=== PATIENT | female | born 1945 | race Caucasian/White ===

== ENCOUNTER 2023-04-10 03:43 | Inpatient (IN) | payer MEDICARE ==
[2023-04-10] MEDS ORDERED: diphenhydrAMINE 50 MG/ML 1 ML VIAL IVP STA (03:59)
[2023-04-10] MEDS ORDERED: methylPREDNISolone SOD SUCCI 125 MG/2 ML VIAL IV STA (03:59)
[2023-04-10] MEDS ORDERED: FAMOTIDINE 20 MG/2 ML VIAL IV STA (03:59)
[2023-04-10] MEDS ORDERED: MAG HYDROX/AL HYDROX/SIMETH 30 ML, HYOSCYAMINE ELIXIR 10 ML, LIDOCAINE 2% GLYDO JELLY 1... PO STA ×3 (03:59)
[2023-04-10] MEDS ORDERED: SODIUM CHLORIDE 0.9% 1,000 ML IV ONE (03:59)
--- NOTE | 2023-04-10 04:05 | ED ---
General Adult HPI - General Chief complaint: Abdominal Pain Stated complaint: Chest Pain Time Seen by Provider: 04/10/23 03:44 Source: patient, EMS Mode of arrival: EMS - History of Present Illness Initial comments: This is a 77-year-old female with a past medical history including arthritis presents emergency department via EMS for epigastric abdominal pain and burning" feeling like I had a heart attack." The patient stated that she woke up out of sleep with sharp, extreme pain in the epigastric region with sweatiness. The patient was anxious on arrival and stated that the pain was mildly improved however was still present. The patient stated that she did go to bed with minor abdominal pain and does have a history of reflux and did take medications however she was able to sleep for a few hours but was woken up due to the epigastric pain. The patient denied any radiation to this pain and stated that she did have continued burning from her epigastric region up to her center of her chest. The patient denied any left arm pain or jaw pain. The patient also denied any fevers or chills. - Related Data Allergies Allergy/AdvReac Type Severity Reaction Status Date / Time iodine Allergy Rash/Hives Verified 04/10/23 04:37 Review of Systems ROS Statement: Those systems with pertinent positive or pertinent negative responses have been documented in the HPI. ROS Other: All systems not noted in ROS Statement are negative. Past Medical History Past Medical History: COPD, GERD/Reflux Additional Past Medical History / Comment(s): hital hernia Past Surgical History: Section Smoking Status: Former smoker Past Alcohol Use History: None Reported Past Drug Use History: None Reported General Exam Limitations: no limitations General appearance: alert, in no apparent distress, anxious Head exam: Present: atraumatic, normocephalic, normal inspection Eye exam: Present: normal appearance, PERRL Pupils: Present: normal accommodation ENT exam: Present: normal exam, normal oropharynx, mucous membranes moist Neck exam: Present: normal inspection, full ROM Respiratory exam: Present: normal lung sounds bilaterally Cardiovascular Exam: Present: regular rate, normal rhythm, normal heart sounds GI/Abdominal exam: Present: soft, tenderness (TTP over the LUQ, RUQ and epigastric region), normal bowel sounds Extremities exam: Present: normal inspection, full ROM Back exam: Present: normal inspection, full ROM Neurological exam: Present: alert, oriented X3, CN II-XII intact Psychiatric exam: Present: normal affect, normal mood Skin exam: Present: warm, dry Course Vital Signs 04/10/23 04/10/23 03:45 05:26 Temperature 97.5 F L Pulse Rate 76 77 Respiratory 20 19 Rate Blood Pressure 177/65 185/85 O2 Sat by Pulse 97 93 L Oximetry EKG Findings - EKG Comments: EKG Findings:: An EKG was obtained and was interpreted by myself showing a rate of 62, CT interval of 203, QR nondenominational 137 and QTC of 450. This EKG showed a normal sinus rhythm with a right bundle branch block. There was however no ST segment elevation or depression noted. Medical Decision Making - Medical Decision Making Was pt. sent in by a medical professional or institution (, PA, [employer], urgent care, hospital, or retirement...) When possible be specific @ -No Did you speak to anyone other than the patient for history (EMS, parent, family, police, friend...)? What history was obtained from this source @ -No Did you review nursing and triage notes (agree or disagree)? Why? @ -I reviewed and agree with nursing and triage notes Were old charts reviewed (outside hosp., previous admission, EMS record, old EKG, old radiological studies, urgent care reports/EKG's, retirement records)? Report findings @ -No old charts were reviewed Differential Diagnosis (chest pain, altered mental status, abdominal pain women, abdominal pain men, vaginal bleeding, weakness, fever, dyspnea, syncope, headache, dizziness, GI bleed, back pain, seizure, CVA, palpatations, mental health)? @ -Gastroenteritis, small bowel obstruction, appendicitis, diverticulitis EKG interpreted by me (3pts min.). @ -As above X-rays interpreted by me (1pt min.). @ -Chest x-ray was obtained and was interpreted by myself showing cardiomegaly with prominence of the interstitium. CT interpreted by me (1pt min.). @ -CT abdomen and pelvis with IV contrast was obtained and was interpreted by myself showing findings most consistent with a small bowel obstruction with a transition point within the left lower quadrant. This is likely from adhesion. There is post surgical changes a "colonic diverticulosis without evidence for acute diverticulosis. 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 U/S interpreted by me (1pt. min.). @ -None done What testing was considered but not performed or refused? (CT, X-rays, U/S, labs)? Why? @ -None What meds were considered but not given or refused? Why? @ -None Did you discuss the management of the patient with other professionals (professionals i.e. , PA, [employer], lab, RT, psych nurse, social work professor, gummed tape press operator, teacher, truant officer, case checker)? Give summary @ -Yes, admitting physician was contacted regarding patient admission. Was smoking cessation discussed for >3mins.? @ -No Was critical care preformed (if so, how long)? @ -No Were there social determinants of health that impacted care today? How? (Homelessness, low income, unemployed, alcoholism, drug addiction, transportation, low edu. Level, literacy, decrease access to med. care, detention, rehab)? @ -No Was there de-escalation of care discussed even if they declined (Discuss DNR or withdrawal of care, Hospice)? DNR status @ -No What co-morbidities impacted this encounter? (DM, HTN, Smoking, COPD, CAD, Cancer, CVA, ARF, Chemo, Hep., AIDS, mental health diagnosis, sleep apnea, morbid obesity)? @ -Hypertension Was patient admitted / discharged? Hospital course, mention meds given and route, prescriptions, significant lab abnormalities, going to OR and other pertinent info. @ -The patient was seen and evaluated emergency department. Physical exam, the patient was resting in bed in minimal distress secondary to abdominal pain. The patient did receive multiple medications and had mild improvement. Laboratory workup and imaging was significant for findings of likely small bowel obstruction. Due to this, the patient will be admitted for further workup and evaluation. The patient was told of this plan and was agreeable. The patient was admitted in stable condition. Undiagnosed new problem with uncertain prognosis? @ -No Drug Therapy requiring intensive monitoring for toxicity (Heparin, Nitro, Insulin, Cardizem)? @ -No Were any procedures done? @ -No Diagnosis/symptom? @ -Small bowel obstruction Acute, or Chronic, or Acute on Chronic? @ -Acute Uncomplicated (without systemic symptoms) or Complicated (systemic symptoms)? @ -Complicated Side effects of treatment? @ -No Exacerbation, Progression, or Severe Exacerbation? @ -No Poses a threat to life or bodily function? How? (Chest pain, USA, NM, pneumonia, PE, COPD, DKA, ARF, appy, cholecystitis, CVA, Diverticulitis, Homicidal, Suicidal, threat to staff... and all critical care pts) @ -Yes, continued obstruction can lead to permanent damage and possible . - Lab Data Result diagrams: 04/10/23 04:06 04/10/23 04:06 Lab Results 04/10/23 04/10/23 04/10/23 Range/Units 04:06 04:06 04:06 WBC 8.2 (3.8-10.6) k/uL RBC 4.98 (3.80-5.40) m/uL Hgb 14.7 (11.4-16.0) gm/dL Hct 45.0 (34.0-46.0) % MCV 90.4 (80.0-100.0) fL MCH 29.6 (25.0-35.0) pg MCHC 32.7 (31.0-37.0) g/dL RDW 12.9 (11.5-15.5) % Plt Count 188 (150-450) k/uL MPV 8.9 Neutrophils % 80 % Lymphocytes % 11 % Monocytes % 5 % Eosinophils % 2 % Basophils % 0 % Neutrophils # 6.6 (1.3-7.7) k/uL Lymphocytes # 0.9 L (1.0-4.8) k/uL Monocytes # 0.4 (0-1.0) k/uL Eosinophils # 0.1 (0-0.7) k/uL Basophils # 0.0 (0-0.2) k/uL PT 9.7 (9.0-12.0) sec INR 0.9 (<1.2) APTT 21.9 L (22.0-30.0) sec Sodium 139 (137-145) mmol/L Potassium 4.1 (3.5-5.1) mmol/L Chloride 97 L (98-107) mmol/L Carbon Dioxide 33 H (22-30) mmol/L Anion Gap 9 mmol/L BUN 34 H (7-17) mg/dL Creatinine 0.69 (0.52-1.04) mg/dL Est GFR (CKD-EPI)AfAm >90 (>60 ml/min/1.73 sqM) Est GFR (CKD-EPI)NonAf 84 (>60 ml/min/1.73 sqM) Glucose 149 H (74-99) mg/dL Calcium 10.7 H (8.4-10.2) mg/dL Magnesium 2.4 H (1.6-2.3) mg/dL Total Bilirubin 0.8 (0.2-1.3) mg/dL AST 34 (14-36) U/L ALT 28 (4-34) U/L Alkaline Phosphatase 134 H (38-126) U/L Troponin I (0.000-0.034) ng/mL NT-Pro-B Natriuret Pep 81 pg/mL Total Protein 7.9 (6.3-8.2) g/dL Albumin 4.6 (3.5-5.0) g/dL Lipase 83 (23-300) U/L 04/10/23 Range/Units 04:06 WBC (3.8-10.6) k/uL RBC (3.80-5.40) m/uL Hgb (11.4-16.0) gm/dL Hct (34.0-46.0) % MCV (80.0-100.0) fL MCH (25.0-35.0) pg MCHC (31.0-37.0) g/dL RDW (11.5-15.5) % Plt Count (150-450) k/uL MPV Neutrophils % % Lymphocytes % % Monocytes % % Eosinophils % % Basophils % % Neutrophils # (1.3-7.7) k/uL Lymphocytes # (1.0-4.8) k/uL Monocytes # (0-1.0) k/uL Eosinophils # (0-0.7) k/uL Basophils # (0-0.2) k/uL PT (9.0-12.0) sec INR (<1.2) APTT (22.0-30.0) sec Sodium (137-145) mmol/L Potassium (3.5-5.1) mmol/L Chloride (98-107) mmol/L Carbon Dioxide (22-30) mmol/L Anion Gap mmol/L BUN (7-17) mg/dL Creatinine (0.52-1.04) mg/dL Est GFR (CKD-EPI)AfAm (>60 ml/min/1.73 sqM) Est GFR (CKD-EPI)NonAf (>60 ml/min/1.73 sqM) Glucose (74-99) mg/dL Calcium (8.4-10.2) mg/dL Magnesium (1.6-2.3) mg/dL Total Bilirubin (0.2-1.3) mg/dL AST (14-36) U/L ALT (4-34) U/L Alkaline Phosphatase (38-126) U/L Troponin I <0.012 (0.000-0.034) ng/mL NT-Pro-B Natriuret Pep pg/mL Total Protein (6.3-8.2) g/dL Albumin (3.5-5.0) g/dL Lipase (23-300) U/L Disposition Clinical Impression: Small bowel obstruction Disposition: ADMITTED IP TO THIS [facility] Condition: Stable Is patient prescribed a controlled substance at d/c from ED?: No Referrals: Mike León MD [Primary Care Provider] - 1-2 days Time of Disposition: 06:00 Decision to Admit Reason: Admit from EC Decision Date: 04/10/23 Decision Time: 06:00
[2023-04-10 04:25] LABS: Basophils % (A) 0 %; Eosinophils # (A) 0.1 k/uL (0-0.7); Eosinophils % (A) 2 %; HGB 14.7 gm/dL (11.4-16.0); Lymphocytes # (A) 0.9 k/uL (1.0-4.8); Lymphocytes % (A) 11 %; MCH 29.6 pg (25.0-35.0); MCHC 32.7 g/dL (31.0-37.0); MCV 90.4 fL (80.0-100.0); Mean Platelet Volume 8.9; Monocytes # (A) 0.4 k/uL (0-1.0); Monocytes % (A) 5 %; Neutrophils # (A) 6.6 k/uL (1.3-7.7); Neutrophils % (A) 80 %; Platelet Count 188 k/uL (150-450); RBC 4.98 m/uL (3.80-5.40); RDW 12.9 % (11.5-15.5); WBC 8.2 k/uL (3.8-10.6)
[2023-04-10 04:46] LABS: ALT 28 U/L (4-34); AST 34 U/L (14-36); African American GFR (CKD) >90 (>60 ml/min/1.73 sqM); Albumin 4.6 g/dL (3.5-5.0); Alkaline Phosphatase 134 U/L (38-126); Anion Gap 9 mmol/L; Blood Urea Nitrogen 34 mg/dL (7-17); Calcium 10.7 mg/dL (8.4-10.2); Carbon Dioxide 33 mmol/L (22-30); Chloride 97 mmol/L (98-107); Glucose 149 mg/dL (74-99); INR 0.9 (<1.2); Lipase 83 U/L (23-300); Magnesium 2.4 mg/dL (1.6-2.3); Non-African American GFR(CKD) 84 (>60 ml/min/1.73 sqM); Potassium 4.1 mmol/L (3.5-5.1); Prothrombin Time 9.7 sec (9.0-12.0); Sodium 139 mmol/L (137-145); Total Bilirubin 0.8 mg/dL (0.2-1.3); Total Protein 7.9 g/dL (6.3-8.2)
[2023-04-10 04:54] LABS: NT-Pro-B-Type Natriuretic Pept 81 pg/mL
[2023-04-10 05:15] LABS: Partial Thromboplastin Time 21.9 sec (22.0-30.0)
[2023-04-10] MEDS ORDERED: ONDANSETRON 4 MG/2 ML VIAL IVP STA (05:53)
--- NOTE | 2023-04-10 05:59 | CT ---
EXAMINATION TYPE: CT abdomen pelvis w con CT DLP: 1307.8 mGycm, Automated exposure control for dose reduction was used. DATE OF EXAM: 04/10/2023 5:44 AM COMPARISON: None CLINICAL INDICATION:Female, 77 years old with history of Acute abdominal pain; Pt reports to ED via E [facility] with upper abdomen pain, sweating, and chest pain. TECHNIQUE: Standard CT of the abdomen and pelvis following the administration of 100 cc of Isovue 3 00 IV contrast material. Coronal and sagittal reformats were performed. FINDINGS: LOWER CHEST: Posterior dependent subsegmental atelectasis is noted. Partial visualization of bilatera l peripherally calcified breast prosthesis. Mildly prominent heart. ABDOMEN LIVER: Unremarkable GALLBLADDER AND BILE DUCTS: The gallbladder is surgically absent. Expected extra hepatic biliary duct al dilatation status post cholecystectomy. PANCREAS: Unremarkable. SPLEEN: Unremarkable. ADRENAL GLANDS: Unremarkable. KIDNEYS AND URETERS: No evidence of hydronephrosis or renal calculus. The kidneys enhance symmetrical ly. Contrast is demonstrated within both kidneys on the delayed phase. PELVIS BLADDER: Poorly visualized due to streak artifact from hip prosthesis. REPRODUCTIVE: Poorly visualized due to streak artifact from hip prosthesis. ABDOMEN & PELVIS STOMACH AND BOWEL: Dilated small bowel with some mesenteric edema and small bowel feces sign identifi ed. The small bowel measures up to 3.1 cm. Transition point is identified within the left lower quadr ant. There is underdistended distal small bowel past this point. No pneumatosis. Surgical changes fro m hemicolectomy with anastomosis in the rectum. The appendix is not confidently identified. No signif icant inflammatory changes within the right lower quadrant. Distal colonic diverticulosis without carlos manuel dence for acute diverticulitis. No evidence of bowel obstruction. PERITONEUM: No evidence of pneumoperitoneum or free fluid. VASCULATURE: Moderate atherosclerotic calcifications are present throughout the abdominal aorta and i ts branches. No evidence of aortic aneurysm. Ectasia of the infrarenal abdominal aorta measuring up t o 2.7 cm. MUSCULOSKELETAL: No acute osseous abnormalities. Mild disc degeneration changes are present throughou t the thoracolumbar spine. This is most prominent at L4-L5 and L5-S1. Postsurgical changes from bilat eral total hip arthroplasty. Pseudojoint at the transverse process of L5 and the sacrum on the left. LYMPH NODES: No gross evidence for lymphadenopathy. SOFT TISSUE/ABDOMINAL WALL: Small fat filled umbilical hernia. IMPRESSION: 1. Findings most consistent with small bowel obstruction with transition point within the left lower quadrant. Likely from adhesion. 2. Postsurgical changes of the colon with colonic diverticulosis without evidence for acute diverticu losis. 3. 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
--- NOTE | 2023-04-10 06:01 | XR ---
EXAMINATION TYPE: XR chest 2V DATE OF EXAM: 04/10/2023 5:49 AM COMPARISON: None TECHNIQUE: XR chest 2V Frontal and lateral views of the chest. CLINICAL INDICATION:Female, 77 years old with history of CP; FINDINGS: Lungs/Pleura: There is no evidence of pleural effusion, focal consolidation, or pneumothorax. Promin ence of the interstitium. Heart/mediastinum: Cardiomediastinal silhouette is enlarged. Atherosclerotic calcifications are seen in the aorta. Musculoskeletal: No acute osseous pathology. Bilateral AC joint arthropathy. Other: Bilateral peripherally calcified breast prosthesis. IMPRESSION: Cardiomegaly with prominence of the interstitium. Correlate for possible CHF exacerbation.
[2023-04-10] MEDS ORDERED: NALOXONE 0.4 MG/ML 1 ML VIAL IV PRN ×2 (06:08→09:21)
[2023-04-10] MEDS ORDERED: MAG HYDROX/AL HYDROX/SIMETH 30 ML CUP PO PRN (09:21)
[2023-04-10] MEDS ORDERED: HYDROcodone/APAP 5-325MG 1 EACH TAB PO PRN (09:21)
[2023-04-10] MEDS ORDERED: ACETAMINOPHEN TAB 325 MG TAB PO PRN (09:21)
[2023-04-10] MEDS: FUROSEMIDE 10 MG/ML 4 ML VIAL IV SCH ×2 (10:14→22:07)
[2023-04-10 10:55] LABS: Appearance,Urine Clear (Clear); Bilirubin,Urine Negative (Negative); Blood,Urine Negative (Negative); Color,Urine Light Yellow; Glucose,Urine (UA) Negative (Negative); Ketones,Urine Negative (Negative); Leukocyte Esterase,Urine Negative (Negative); Nitrite,Urine Negative (Negative); Protein,Urine Negative (Negative); Specific Gravity,Urine 1.034 (1.001-1.035); Urobilinogen,Urine <2.0 mg/dL (<2.0)
[2023-04-10] MEDS: ONDANSETRON 4 MG/2 ML VIAL IVP PRN ×2 (11:21→18:55)
--- NOTE | 2023-04-10 11:43 | P.GSCN ---
History of Present Illness Consult date: 04/10/23 Reason for Consult: Small bowel obstruction History of present illness: Patient's a 77-year-old lady who presented to [facility] emergency department in client development director hours of 04/10/2023 with chief complaint of around 24 hours of progressive burning epigastric upper abdominal pain and fullness with acute exacerbation of heartburn. She hasn't had this sort of issue in the past. Last bowel movement was yesterday, described as loose. She admits to some flatus today. Surgical history is significant for a segmental colectomy for complications of diverticulitis in 2019 as well as inguinal hernia repair at some point in the relatively distant past. Over the past 2 years she is undergone EGD and colonoscopy, was told that she had a hiatal hernia and significant gastroesophageal reflux and diverticulosis on colonoscopy. No known personal history of inflammatory bowel disease. No known personal history of heart attack, stroke, DVT or pulmonary embolus. She's not maintained on any manner of oral anticoagulants, no known history of diabetes mellitus. She's had a hemodynamically stable and afebrile appearance since presentation. Laboratory studies today showed a normal CBC without evidence of iron deficiency on differential, normal INR at 0.9. Comprehensive metabolic panel shows a high CO2 at 33, otherwise normal with the exception of a mildly elevated alkaline phosphatase at 134 and slightly elevated magnesium 2.4. Lipase was normal range. Chest x-ray shows a suggestion of cardiomegaly, otherwise normal. Computed tomography scan of the abdomen and pelvis was reviewed showing findings consistent with mechanical small bowel obstruction with a transition point in the left lower quadrant. No free air, no free fluid. Review of Systems All systems: negative Past Medical History Past Medical History: COPD, GERD/Reflux, Osteoarthritis (OA) Additional Past Medical History / Comment(s): hital hernia, gerd, copd, oa of hips bilat, Breast implants bilat, severe restless legs. History of Any Multi-Drug Resistant Organisms: None Reported Past Surgical History: Section, Joint Replacement Additional Past Surgical History / Comment(s): Total hip replacements bilateral, 18 inches of large colon resection 2019 due to abcess. Past Anesthesia/Blood Transfusion Reactions: No Reported Reaction Past Psychological History: No Psychological Hx Reported Smoking Status: Former smoker Past Alcohol Use History: None Reported Past Drug Use History: None Reported - Past Family History Mother Family Medical History: Cancer Father Family Medical History: Cancer Medications and Allergies Home Medications Medication Instructions Recorded Confirmed Type Celecoxib 400 mg PO DAILY 04/10/23 04/10/23 History Magnesium(Unknown Dose) 1 tab PO DAILY 04/10/23 04/10/23 History Multivitamin [Multivitamins Adult 1 tab PO DAILY 04/10/23 04/10/23 History Gummies] Omeprazole Magnesium [PriLOSEC OTC] 20 mg PO DAILY 04/10/23 04/10/23 History Potassium Gluconate 99 mg PO BID 04/10/23 04/10/23 History traMADol HCL 50 mg PO Q6H PRN 04/10/23 04/10/23 History Allergies Allergy/AdvReac Type Severity Reaction Status Date / Time Iodinated Contrast Media Allergy Anaphylaxis Verified 04/10/23 11:24 iodine Allergy Anaphylaxis Verified 04/10/23 11:24 Surgical - Exam Osteopathic Statement: *. No significant issues noted on an osteopathic structural exam other than those noted in the History and Physical/Consult. Vital Signs Temp Pulse Resp BP Pulse Ox 97.5 F L 76 20 177/65 97 04/10/23 03:45 04/10/23 03:45 04/10/23 03:45 04/10/23 03:45 04/10/23 03:45 - General well developed, well nourished, no distress - Eyes PERRL, normal ocular movement - ENT normal pinna, normal nares, normal mucosa, no hearing loss - Neck trachea midline - Respiratory normal expansion, normal respiratory effort, clear to auscultation - Cardiovascular Rhythm: regular - Abdomen Abdomen is soft, nontender palpation, no guarding, rebound, or distention. Abdominal exam is benign, no evidence of peritonitis. - Integumentary no abnormal pigmentation - Neurologic normal coordination, normal sensation - Psychiatric oriented to time, oriented to person, oriented to place, speech is normal, memory intact Results - Labs 04/10/23 04:06 04/10/23 04:06 Abnormal Lab Results - Last 24 Hours (Table) 04/10/23 04/10/23 04/10/23 Range/Units 04:06 04:06 04:06 Lymphocytes # 0.9 L (1.0-4.8) k/uL APTT 21.9 L (22.0-30.0) sec Chloride 97 L (98-107) mmol/L Carbon Dioxide 33 H (22-30) mmol/L BUN 34 H (7-17) mg/dL Glucose 149 H (74-99) mg/dL Calcium 10.7 H (8.4-10.2) mg/dL Magnesium 2.4 H (1.6-2.3) mg/dL Alkaline Phosphatase 134 H (38-126) U/L Diabetes panel 04/10/23 Range/Units 04:06 Sodium 139 (137-145) mmol/L Potassium 4.1 (3.5-5.1) mmol/L Chloride 97 L (98-107) mmol/L Carbon Dioxide 33 H (22-30) mmol/L BUN 34 H (7-17) mg/dL Creatinine 0.69 (0.52-1.04) mg/dL Glucose 149 H (74-99) mg/dL Calcium 10.7 H (8.4-10.2) mg/dL AST 34 (14-36) U/L ALT 28 (4-34) U/L Alkaline Phosphatase 134 H (38-126) U/L Total Protein 7.9 (6.3-8.2) g/dL Albumin 4.6 (3.5-5.0) g/dL Calcium panel 04/10/23 Range/Units 04:06 Calcium 10.7 H (8.4-10.2) mg/dL Albumin 4.6 (3.5-5.0) g/dL Pituitary panel 04/10/23 Range/Units 04:06 Sodium 139 (137-145) mmol/L Potassium 4.1 (3.5-5.1) mmol/L Chloride 97 L (98-107) mmol/L Carbon Dioxide 33 H (22-30) mmol/L BUN 34 H (7-17) mg/dL Creatinine 0.69 (0.52-1.04) mg/dL Glucose 149 H (74-99) mg/dL Calcium 10.7 H (8.4-10.2) mg/dL Adrenal panel 04/10/23 Range/Units 04:06 Sodium 139 (137-145) mmol/L Potassium 4.1 (3.5-5.1) mmol/L Chloride 97 L (98-107) mmol/L Carbon Dioxide 33 H (22-30) mmol/L BUN 34 H (7-17) mg/dL Creatinine 0.69 (0.52-1.04) mg/dL Glucose 149 H (74-99) mg/dL Calcium 10.7 H (8.4-10.2) mg/dL Total Bilirubin 0.8 (0.2-1.3) mg/dL AST 34 (14-36) U/L ALT 28 (4-34) U/L Alkaline Phosphatase 134 H (38-126) U/L Total Protein 7.9 (6.3-8.2) g/dL Albumin 4.6 (3.5-5.0) g/dL - Imaging Chest x-ray: report reviewed, image reviewed CT scan - abdomen: report reviewed, image reviewed CT scan - pelvis: report reviewed, image reviewed Assessment and Plan Assessment: 77-year-old lady with clinical presentation, history, and imaging consistent w ith small bowel obstruction with transition point in the left lower quadrant, may relate to postoperative adhesions. Abdominal exam benign, hemodynamically stable, no discrete concerning abnormalities on labs. History of diverticulitis with segmental resection in 2019. COPD, gastroesophageal reflux disease. Plan: Options for initial treatment were discussed with the patient at length. Recommend initial nonoperative management with nasogastric tube, IV fluids, and bowel rest. Patient's in agreement. Keep nasogastric tube to moderate intermittent suction, okay for cepacol lozenges, daily acid suppression with Protonix 40 mg IV. Will follow. If she doesn't show signs of resolution over the next 48-72 hours will anticipate a follow-up abdominal imaging series with oral contrast challenge. If she shows signs of clinical deterioration peritonitis at any point she'll need an open exploration. I expect her to do well with nasogastric decompression. We'll follow over the course of her admission Time with Patient: Greater than 30
--- NOTE | 2023-04-10 12:21 | P.HPIM ---
History of Present Illness H&P Date: 04/10/23 History of present illness; patient 77-year-old lady with past medical history s ignificant for arthritis and the ER because of abdominal pain. Patient stated that she was all right last night which started experiencing abdominal pain which is epigastric in location. Initially the pain was not severe but in the middle the night she woke up with excruciating pain that was located in the epigastric area associated with diaphoresis. Patient describes epigastric pain as burning in nature, pain was nonradiating, not associated with any aggravating or relieving factors. Did state that the pain was radiating into her chest. Denies any nausea or vomiting. Denies any shortness of breath. Denies palpitation. Because of some abdominal pain, patient came to the ER Initial lab work done in the ER showed WBC 8.2, hemoglobin 14.7, platelet count 188, sodium 138, potassium 4.1, BUN 34, creatinine 0.69, glucose 149, calcium 10.7, magnesium 2.4 Chest x-ray done in the ER showed cardiomegaly with prominence of interstitial CT abdominal and pelvis done showed findings most consistent with small bowel obstruction with transition point in the left lower quadrant likely from ad hesion. Postsurgical changes of the colon with colonic diverticulosis REVIEW OF SYSTEMS: CONSTITUTIONAL: No fever, no malaise, no fatigue. HEENT: No recent visual problems or hearing problems. Denied any sore throat. CARDIOVASCULAR: As mentioned in HPI PULMONARY: No shortness of breath, no cough, no hemoptysis. GASTROINTESTINAL: As mentioned in HPI NEUROLOGICAL: No headaches, no weakness, no numbness. HEMATOLOGICAL: Denies any bleeding or petechiae. GENITOURINARY: Denies any burning micturition, frequency, or urgency. MUSCULOSKELETAL/RHEUMATOLOGICAL: Denies any joint pain, swelling, or any muscle pain. ENDOCRINE: Denies any polyuria or polydipsia. The rest of the 14-point review of systems is negative. PHYSICAL EXAMINATION: GENERAL: The patient is alert and oriented x3, not in any acute distress. Well developed, well nourished. HEENT: Pupils are round and equally reacting to light. EOMI. No scleral icterus. No conjunctival pallor. Normocephalic, atraumatic. No pharyngeal erythema. No thyromegaly. CARDIOVASCULAR: S1 and S2 present. No murmurs, rubs, or gallops. PULMONARY: Chest is clear to auscultation, no wheezing or crackles. ABDOMEN: Soft, nontender, nondistended, bowel sounds sluggish MUSCULOSKELETAL: No joint swelling or deformity. EXTREMITIES: No cyanosis, clubbing, or pedal edema. NEUROLOGICAL: Gross neurological examination did not reveal any focal deficits. SKIN: No rashes. Assessment and plan Small bowel obstruction Monitor vital signs Monitor CBC Monitor CMP Continue telemetry monitoring Trend troponins. Keep patient nothing by mouth Continue IV fluids Continue IV Protonix twice a day Continue antiemetics Consult surgery Labs and medication were reviewed.. Continue same treatment. Continue with symptomatic treatment. Resume home medication. Monitor labs and vitals. DVT and GI prophylaxis. Further recommendations as per clinical course of the patient Dictation was produced using [employer] dictation software. please excuse any grammatical, word or spelling errors. Past Medical History Past Medical History: COPD, GERD/Reflux, Osteoarthritis (OA) Additional Past Medical History / Comment(s): hital hernia, gerd, copd, oa of hips bilat, Breast implants bilat, severe restless legs. History of Any Multi-Drug Resistant Organisms: None Reported Past Surgical History: Section, Joint Replacement Additional Past Surgical History / Comment(s): Total hip replacements bilateral, 18 inches of large colon resection 2020 due to abcess. Past Anesthesia/Blood Transfusion Reactions: No Reported Reaction Past Psychological History: No Psychological Hx Reported Smoking Status: Former smoker Past Alcohol Use History: None Reported Past Drug Use History: None Reported - Past Family History Mother Family Medical History: Cancer Father Family Medical History: Cancer Medications and Allergies Home Medications Medication Instructions Recorded Confirmed Type Celecoxib 400 mg PO DAILY 04/10/23 04/10/23 History Magnesium(Unknown Dose) 1 tab PO DAILY 04/10/23 04/10/23 History Multivitamin [Multivitamins Adult 1 tab PO DAILY 04/10/23 04/10/23 History Gummies] Omeprazole Magnesium [PriLOSEC OTC] 20 mg PO DAILY 04/10/23 04/10/23 History Potassium Gluconate 99 mg PO BID 04/10/23 04/10/23 History traMADol HCL 50 mg PO Q6H PRN 04/10/23 04/10/23 History Allergies Allergy/AdvReac Type Severity Reaction Status Date / Time Iodinated Contrast Media Allergy Anaphylaxis Verified 04/10/23 11:24 iodine Allergy Anaphylaxis Verified 04/10/23 11:24 Physical Exam Vitals: Vital Signs Temp Pulse Pulse Resp BP BP Pulse Ox 04/10/23 08:09 98.9 F 92 16 176/78 94 L 04/10/23 06:50 90 18 187/86 94 L 04/10/23 06:11 93 19 185/85 93 L 04/10/23 05:26 77 19 185/85 93 L 04/10/23 03:45 97.5 F L 76 20 177/65 97 Intake and Output 04/09/23 04/10/23 04/10/23 22:59 06:59 14:59 Other: Weight 68.039 kg 68.039 kg Results CBC & Chem 7: 04/10/23 04:06 04/10/23 04:06 Labs: Abnormal Lab Results - Last 24 Hours (Table) 04/10/23 04/10/23 04/10/23 Range/Units 04:06 04:06 04:06 Lymphocytes # 0.9 L (1.0-4.8) k/uL APTT 21.9 L (22.0-30.0) sec Chloride 97 L (98-107) mmol/L Carbon Dioxide 33 H (22-30) mmol/L BUN 34 H (7-17) mg/dL Glucose 149 H (74-99) mg/dL Calcium 10.7 H (8.4-10.2) mg/dL Magnesium 2.4 H (1.6-2.3) mg/dL Alkaline Phosphatase 134 H (38-126) U/L Thrombosis Risk Factor Assmnt - Choose All That Apply Each Factor Represents 1 point: Abnormal pulmonary function (COPD), Varicose veins Other Risk Factors: Yes Each Risk Factor Represents 3 Points: Age 75 years or older Thrombosis Risk Factor Assessment Total Risk Factor Score: 5 Thrombosis Risk Factor Assessment Level: High Risk
[2023-04-10] MEDS: PANTOPRAZOLE 40 MG/10 ML VIAL IVP SCH (16:04)
[2023-04-11] MEDS: PANTOPRAZOLE 40 MG/10 ML VIAL IVP SCH (08:14)
[2023-04-11] MEDS: FUROSEMIDE 10 MG/ML 4 ML VIAL IV SCH ×2 (08:14→22:18)
[2023-04-11 10:52] LABS: Basophils # (A) 0.04 X 10*3/uL (0.00-0.10); Basophils % (A) 0.4 %; Eosinophils # (A) 0.02 X 10*3/uL (0.04-0.35); Eosinophils % (A) 0.2 %; HCT 43.3 % (37.2-46.3); HGB 13.7 d/dL (12.0-15.0); Lymphocytes # (A) 1.14 X 10*3/uL (0.90-5.00); Lymphocytes % (A) 11.4 %; MCH 29.1 pg (27.0-32.0); MCHC 31.6 d/dL (32.0-37.0); MCV 91.9 FL (80.0-97.0); Mean Platelet Volume 11.8 FL (9.5-12.2); Monocytes # (A) 0.82 X 10*3/uL (0.20-1.00); Monocytes % (A) 8.2 %; NRBC Per 100 WBC 0 X 10*3/uL (0.00-0.01); Neutrophils # (A) 7.97 X 10*3/uL (1.80-7.70); Neutrophils % (A) 79.5 %; Platelet Count 240 X 10*3/uL (140-440); RBC 4.71 X 10*6/uL (4.10-5.20); RDW 13.2 % (11.5-14.5); WBC 10.02 X 10*3/uL (4.50-10.00)
[2023-04-11 11:09] LABS: ALT 68 U/L (8-44); AST 54 U/L (13-35); Albumin 4.3 d/dL (3.8-4.9); Albumin/Globulin Ratio 1.95 Ratio (1.60-3.17); Alkaline Phosphatase 124 U/L (41-126); BUN/Creat Ratio 36.67 Ratio (12.00-20.00); Calcium 9.7 mg/dL (8.7-10.3); Carbon Dioxide 26.9 mmol/L (21.6-31.8); Chloride 103 mmol/L (96-109); Globulin 2.2 d/dL (1.6-3.3); Glucose 102 mg/dL (70-110); Potassium 4.2 mmol/L (3.5-5.5); Sodium 142 mmol/L (135-145); Total Bilirubin 0.6 mg/dL (0.3-1.2); Total Protein 6.5 d/dL (6.2-8.2)
--- NOTE | 2023-04-11 12:07 | P.PN ---
Subjective Principal diagnosis: Small bowel obstruction, suspected intra-abdominal adhesions Patient seen and examined at bedside. Doing quite well today. She tells me her abdominal pains of completely subsided, she had 4 episodes of loose bowel movements yesterday. We didn't have much excess with nasogastric tube placement, unfortunately. She's had a hematin medically stable and afebrile appearance overnight. Laboratory studies show a mild interval increase in white blood cell count at 10.0 to today, hemoglobin stable, platelet count normal range. Comprehensive metabolic panel shows a trivial increase in transaminases with AST and ELT of 54 and 68 respectively, she has a bit of an anion gap developing at 12.1, electrodes otherwise normal. She tells me she feels much better than on initial presentation and feels ready for a trial of clear liquids, is eager for discharge home. Objective - Vital Signs Vital signs: Vital Signs Temp 97.9 F 04/11/23 07:41 Pulse 75 04/11/23 07:41 Resp 18 04/11/23 07:41 BP 124/69 04/11/23 07:41 Pulse Ox 94 L 04/11/23 07:41 FiO2 Intake & Output 04/10/23 04/11/23 04/11/23 18:59 06:59 18:59 Weight 68.039 kg Other: # Voids 2 2 1 - Constitutional General appearance: Present: average body habitus, cooperative, no acute distress - EENT Eyes: Present: PERRLA ENT: Present: NA/AT - Respiratory Respiratory: bilateral: CTA - Cardiovascular Rhythm: regular - Gastrointestinal Gastrointestinal Comment(s): Abdomen is soft, nontender palpation, no guarding rebound or distention. Abdominal exam is entirely benign. - Integumentary Integumentary: Present: normal turgor - Neurologic Neurologic: Present: CNII-XII intact - Psychiatric Psychiatric: Present: A&O x's 3, appropriate affect, intact judgment & insight - Labs CBC & Chem 7: 04/11/23 06:38 04/11/23 06:38 Labs: Abnormal Lab Results - Last 24 Hours (Table) 04/11/23 04/11/23 Range/Units 06:38 06:38 WBC 10.02 H (4.50-10.00) X 10*3/uL MCHC 31.6 L (32.0-37.0) d/dL Neutrophils # 7.97 H (1.80-7.70) X 10*3/uL Eosinophils # 0.02 L (0.04-0.35) X 10*3/uL Anion Gap 12.10 H (4.00-12.00) mmol/L BUN 33.0 H (9.0-27.0) mg/dL BUN/Creatinine Ratio 36.67 H (12.00-20.00) Ratio AST 54 H (13-35) U/L ALT 68 H (8-44) U/L Assessment and Plan Assessment: 77-year-old lady with clinical presentation, history, and imaging consistent with small bowel obstruction with transition point in the left lower quadrant, may relate to postoperative adhesions. Clinically resolving today. Abdominal exam benign, hemodynamically stable, no discrete concerning abnormalities on labs. History of diverticulitis with segmental resection in 2019. COPD, gastroesophageal reflux disease. Plan: The vesica clear liquids as tolerated today. If no issues overnight she can advance to a soft diet tomorrow. If she has no issues by tomorrow afternoon she'll be ready for discharge home from a surgical standpoint. If she wishes she may follow up with me in the office the week of April 18. Time with Patient: Greater than 30
[2023-04-11 15:14] VITALS: BMI 25.0
--- NOTE | 2023-04-11 20:43 | P.PN ---
Progress Note - Text Progress Note Date: 04/11/23 Hospital course: History of present illness; patient 77-year-old lady with past medical history significant for arthritis and the ER because of abdominal pain. Patient stated that she was all right last night which started experiencing abdominal pain which is epigastric in location. Initially the pain was not severe but in the middle the night she woke up with excruciating pain that was located in the epigastric area associated with diaphoresis. Patient describes epigastric pain as burning in nature, pain was nonradiating, not associated with any aggravating or relieving factors. Did state that the pain was radiating into her chest. Denies any nausea or vomiting. Denies any shortness of breath. Denies palpitation. Because of some abdominal pain, patient came to the ER Initial lab work done in the ER showed WBC 8.2, hemoglobin 14.7, platelet count 188, sodium 138, potassium 4.1, BUN 34, creatinine 0.69, glucose 149, calcium 10.7, magnesium 2.4 Chest x-ray done in the ER showed cardiomegaly with prominence of interstitial CT abdominal and pelvis done showed findings most consistent with small bowel obstruction with transition point in the left lower quadrant likely from adhesion. Postsurgical changes of the colon with colonic diverticulosis April 11: I assumed care of the patient today. Patient had lost 3 or 4 bowel movements yesterday. Loose. No further nausea vomiting. Has been up to the bathroom. No abdominal pain. Per surgery to be started on clear liquids this evening. Discussed with the patient family the bedside. Increase activity. Active Medications Acetaminophen (Acetaminophen Tab 325 Mg Tab) 650 mg PO Q6HR PRN PRN Reason: Mild Pain or Fever > 100.5 Hydrocodone Bitart/Acetaminophen (Hydrocodone/Apap 5-325mg 1 Each Tab) 1 each PO Q4HR PRN PRN Reason: Moderate Pain (Scale 4 to 6) Last Admin: 04/10/23 10:14 Dose: 1 each Al Hydroxide/Mg Hydroxide (Mag Hydrox/Al Hydrox/Simeth 30 Ml Cup) 15 ml PO Q6HR PRN PRN Reason: Indigestion Last Admin: 04/10/23 10:13 Dose: 15 ml Furosemide (Furosemide 10 Mg/Ml 4 Ml Vial) 40 mg IV Q12HR RAUL Last Admin: 04/11/23 08:14 Dose: 40 mg Naloxone HCl (Naloxone 0.4 Mg/Ml 1 Ml Vial) 0.2 mg IV Q2M PRN PRN Reason: Opioid Reversal Ondansetron HCl (Ondansetron 4 Mg/2 Ml Vial) 4 mg IVP Q8HR PRN PRN Reason: Nausea And Vomiting Last Admin: 04/10/23 18:55 Dose: 4 mg Pantoprazole Sodium (Pantoprazole 40 Mg/10 Ml Vial) 40 mg IVP DAILY RAUL Last Admin: 04/11/23 08:14 Dose: 40 mg On examination: VITAL SIGNS: [97.9, 75, 18, 124/69, 94% room air] GENERAL APPEARANCE: Take up in bed, comfortable HEENT: Normal external appearance of nose and ear. Oral cavity normal EYES: Pupils equal. Conjunctiva normal. NECK: JVD not raised. Mass not palpable. RESPIRATORY: Respiratory effort normal. Lungs clear to auscultation. CARDIOVASCULAR: First and second sounds normal. No edema. ABDOMEN: Soft. Liver and spleen not palpable. No tenderness. No mass palpable. PSYCHIATRY: Alert and oriented x3. Mood and affect normal. INVESTIGATIONS, reviewed in the clinical context: White count 10.02 hemoglobin 13.7 platelets 240 potassium [address] abdomen pelvis: Findings consistent with small bowel obstruction with a transition point in the left lower quadrant. Colonic diverticulosis. Assessment and plan: -Acute Small bowel obstruction: Improving Started on clear liquids. Being followed by surgery. -Chronic diverticulosis, asymptomatic -GERD Prilosec -Primary osteoarthritis Tylenol as needed. Tramadol -Hiatal hernia -Restless legs syndrome. Discussed with patient. Increase activity. Past Medical History Past Medical History: COPD, GERD/Reflux, Osteoarthritis (OA) Additional Past Medical History / Comment(s): hital hernia, gerd, copd, oa of hips bilat, Breast implants bilat, severe restless legs. History of Any Multi-Drug Resistant Organisms: None Reported Past Surgical History: Section, Joint Replacement Additional Past Surgical History / Comment(s): Total hip replacements bilateral, 18 inches of large colon resection 2020 due to abcess. Past Anesthesia/Blood Transfusion Reactions: No Reported Reaction Past Psychological History: No Psychological Hx Reported Smoking Status: Former smoker Past Alcohol Use History: None Reported Past Drug Use History: None Reported - Past Family History Mother Family Medical History: Cancer Father Family Medical History: Cancer Medications and Allergies Home Medications Medication Instructions Recorded Confirmed Type Celecoxib 400 mg PO DAILY 04/10/23 04/10/23 History Magnesium(Unknown Dose) 1 tab PO DAILY 04/10/23 04/10/23 History Multivitamin [Multivitamins Adult 1 tab PO DAILY 04/10/23 04/10/23 History Gummies] Omeprazole Magnesium [PriLOSEC OTC] 20 mg PO DAILY 04/10/23 04/10/23 History Potassium Gluconate 99 mg PO BID 04/10/23 04/10/23 History traMADol HCL 50 mg PO Q6H PRN 04/10/23 04/10/23 History Allergies Allergy/AdvReac Type Severity Reaction Status Date / Time Iodinated Contrast Media Allergy Anaphylaxis Verified 04/10/23 11:24 iodine Allergy Anaphylaxis Verified 04/10/23 11:24
[2023-04-12] MEDS: FUROSEMIDE 10 MG/ML 4 ML VIAL IV SCH (08:52)
[2023-04-12] MEDS: PANTOPRAZOLE 40 MG/10 ML VIAL IVP SCH (08:52)
[2023-04-12 09:19] VITALS: BP 154/75; PULSE 86; RESP 18; TEMP 97.8
--- NOTE | 2023-04-12 15:13 | P.DS ---
Providers Date of admission: 04/10/23 06:10 Expected date of discharge: 04/12/23 Attending physician: Dar Verdin Consults: 04/10/23 06:39 Consult Physician Routine Consulting Provider: Jose E Lopez Consult Reason/Comments: SBO Do you want consulting provider notified?: Yes, Notify in am Primary care physician: [facility] Course: Hospital course: History of present illness; patient 77-year-old lady with past medical history significant for arthritis and the ER because of abdominal pain. Patient stated that she was all right last night which started experiencing abdominal pain which is epigastric in location. Initially the pain was not severe but in the middle the night she woke up with excruciating pain that was located in the epigastric area associated with diaphoresis. Patient describes epigastric pain as burning in nature, pain was nonradiating, not associated with any aggravating or relieving factors. Did state that the pain was radiating into her chest. Denies any nausea or vomiting. Denies any shortness of breath. Denies palpitation. Because of some abdominal pain, patient came to the ER Initial lab work done in the ER showed WBC 8.2, hemoglobin 14.7, platelet count 188, sodium 138, potassium 4.1, BUN 34, creatinine 0.69, glucose 149, calcium 10.7, magnesium 2.4 Chest x-ray done in the ER showed cardiomegaly with prominence of interstitial CT abdominal and pelvis done showed findings most consistent with small bowel obstruction with transition point in the left lower quadrant likely from adhesion. Postsurgical changes of the colon with colonic diverticulosis April 11: I assumed care of the patient today. Patient had lost 3 or 4 bowel movements yesterday. Loose. No further nausea vomiting. Has been up to the bathroom. No abdominal pain. Per surgery to be started on clear liquids this evening. Discussed with the patient family the bedside. Increase activity. April 12: Patient doing well. Tolerated full liquid diet. Soft diet for lunch. Doing well. No abdominal pain. Discussed. Questions answered On examination: VITAL SIGNS: [97.8, 86, 18, 154/75, 91% room air GENERAL APPEARANCE: , comfortable HEENT: Normal external appearance of nose and ear. Oral cavity normal EYES: Pupils equal. Conjunctiva normal. NECK: JVD not raised. Mass not palpable. RESPIRATORY: Respiratory effort normal. Lungs clear to auscultation. CARDIOVASCULAR: First and second sounds normal. No edema. ABDOMEN: Soft. Liver and spleen not palpable. No tenderness. No mass palpable. PSYCHIATRY: Alert and oriented x3. Mood and affect normal. INVESTIGATIONS, reviewed in the clinical context: White count 10.02 hemoglobin 13.7 platelets 240 potassium 4[address] abdomen pelvis: Findings consistent with small bowel obstruction with a transition point in the left lower quadrant. Colonic diverticulosis. Assessment and plan: -Acute Small bowel obstruction: Improved Tolerating diet -Chronic diverticulosis, asymptomatic -GERD Prilosec -Primary osteoarthritis Tylenol as needed. Tramadol -Hiatal hernia -Restless legs syndrome. Disposition: Home Past Medical History Past Medical History: COPD, GERD/Reflux, Osteoarthritis (OA) Additional Past Medical History / Comment(s): hital hernia, gerd, copd, oa of hips bilat, Breast implants bilat, severe restless legs. History of Any Multi-Drug Resistant Organisms: None Reported Past Surgical History: Section, Joint Replacement Additional Past Surgical History / Comment(s): Total hip replacements bilateral, 18 inches of large colon resection 2020 due to abcess. Past Anesthesia/Blood Transfusion Reactions: No Reported Reaction Past Psychological History: No Psychological Hx Reported Smoking Status: Former smoker Past Alcohol Use History: None Reported Past Drug Use History: None Reported - Past Family History Mother Family Medical History: Cancer Father Family Medical History: Cancer Medications and Allergies Home Medications Medication Instructions Recorded Confirmed Type Celecoxib 400 mg PO DAILY 04/10/23 04/10/23 History Magnesium(Unknown Dose) 1 tab PO DAILY 04/10/23 04/10/23 History Multivitamin [Multivitamins Adult 1 tab PO DAILY 04/10/23 04/10/23 History Gummies] Omeprazole Magnesium [PriLOSEC OTC] 20 mg PO DAILY 04/10/23 04/10/23 History Potassium Gluconate 99 mg PO BID 04/10/23 04/10/23 History traMADol HCL 50 mg PO Q6H PRN 04/10/23 04/10/23 History Allergies Allergy/AdvReac Type Severity Reaction Status Date / Time Iodinated Contrast Media Allergy Anaphylaxis Verified 04/10/23 11:24 iodine Allergy Anaphylaxis Verified 04/10/23 11:24 Plan - Discharge Summary Discharge Rx Participant: Yes New Discharge Prescriptions: Continue traMADol HCL 50 mg PO Q6H PRN PRN Reason: Pain Potassium Gluconate 99 mg PO BID Omeprazole Magnesium [PriLOSEC OTC] 20 mg PO DAILY Multivitamin [Multivitamins Adult Gummies] 1 tab PO DAILY Celecoxib 400 mg PO DAILY Magnesium(Unknown Dose) 1 tab PO DAILY Discharge Medication List Celecoxib 400 mg PO DAILY 04/10/23 [History] Magnesium(Unknown Dose) 1 tab PO DAILY 04/10/23 [History] Multivitamin [Multivitamins Adult Gummies] 1 tab PO DAILY 04/10/23 [History] Omeprazole Magnesium [PriLOSEC OTC] 20 mg PO DAILY 04/10/23 [History] Potassium Gluconate 99 mg PO BID 04/10/23 [History] traMADol HCL 50 mg PO Q6H PRN 04/10/23 [History] Follow up Appointment(s)/Referral(s): Mike León MD [Primary Care Provider] - 1-2 days (office closed at time of discharge. Please call to make appointment ) Jose E Lopez DO [Doctor of Osteopathic Medicine] - 1 Week () Patient Instructions/Handouts: Bowel Obstruction (DC) Discharge Disposition: HOME SELF-CARE
== END 2023-04-12 14:05 | disposition home or self-care (01) | DRG 389 ==
LOC: EC 03:43 → 4SSUR 06:10
PROVIDERS: ADMIT Hospitalist; ATTEND Hospitalist
DX: K56.699 Other intestinal obstruction unspecified as to partial versus complete obstruction (principal); K57.32 Diverticulitis of large intestine without perforation or abscess without bleeding; K21.9 Gastro-esophageal reflux disease without esophagitis; M19.90 Unspecified osteoarthritis, unspecified site; G25.81 Restless legs syndrome; K44.9 Diaphragmatic hernia without obstruction or gangrene; I11.9 Hypertensive heart disease without heart failure; I77.811 Abdominal aortic ectasia; J44.9 Chronic obstructive pulmonary disease, unspecified; M16.0 Bilateral primary osteoarthritis of hip; Z96.643 Presence of artificial hip joint, bilateral; Z98.82 Breast implant status; Z87.891 Personal history of nicotine dependence; Z91.041 Radiographic dye allergy status
CPT/HCPCS: 36415; 71046; 74177; 80053; 81003; 83690; 83735; 83880; 84484; 85025; 85610; 85730; 93005; 96361; 96374; 96375; 99285